=== PATIENT | female | born 1990 | race Caucasian/White ===

== ENCOUNTER 2019-11-05 14:56 | Emergency (ER) | payer OTHER ==
[2019-11-05 15:50] VITALS: BP 157/99; PULSE 85; RESP 17; TEMP 99.2
[2019-11-05] MEDS ORDERED: ACET/COD 300 MG/30 MG STARTER PACK 6 TAB BTL PO STA (16:08)
--- NOTE | 2019-11-05 16:15 | ED ---
ENT HPI - General Chief complaint: Dental/Oral Stated complaint: Abcess tooth Source: patient Mode of arrival: ambulatory - History of Present Illness Initial comments: Patient is a 29-year-old female presenting to emergency prompt with a chief complaint of dental pain. She states that she is noticed a pain on the lingual aspect of the left lower jaw. Patient reports she has an appointment scheduled to see a dentist in 3 days. Patient denies any night sweats or chills. Denies any swelling. Reports the pain is about a 6 and throbbing. She reports the pain is exacerbated whenever she places her tongue along the tender site. - Related Data Previous Rx's Medication Instructions Recorded Amoxicillin/Potassium Clav 1 tab PO Q12HR #10 tab 11/05/19 [Augmentin 875-125 Tablet] Allergies Allergy/AdvReac Type Severity Reaction Status Date / Time pomegranate Allergy Swelling Verified 11/05/19 15:51 Review of Systems ROS Statement: Those systems with pertinent positive or pertinent negative responses have been documented in the HPI. ROS Other: All systems not noted in ROS Statement are negative. Past Medical History Past Medical History: Asthma History of Any Multi-Drug Resistant Organisms: None Reported Past Surgical History: Section, Cholecystectomy Past Psychological History: No Psychological Hx Reported Smoking Status: Current every day smoker Past Alcohol Use History: Occasional Past Drug Use History: None Reported General Exam Limitations: no limitations General appearance: alert, in no apparent distress Head exam: Present: atraumatic, normocephalic, normal inspection Eye exam: Present: normal appearance, PERRL, EOMI Pupils: Present: normal accommodation ENT exam: Present: normal exam, mucous membranes moist, TM's normal bilaterally, normal external ear exam. Absent: normal oropharynx (Periapical abscess on the lingual side of the left lower jaw. Uvula midline. Able to visualize posterior pharynx. No tonsillar enlargement erythema or exudates. No changes in voice. ) Neck exam: Present: normal inspection, full ROM Respiratory exam: Present: normal lung sounds bilaterally Cardiovascular Exam: Present: regular rate, normal rhythm, normal heart sounds Extremities exam: Present: normal inspection, full ROM Back exam: Present: normal inspection, full ROM Neurological exam: Present: alert, oriented X3 Psychiatric exam: Present: normal affect, normal mood Skin exam: Present: warm, dry, intact, normal color Course Vital Signs 11/05/19 15:45 Temperature 99.2 F Pulse Rate 85 Respiratory 17 Rate Blood Pressure 157/99 O2 Sat by Pulse 99 Oximetry Procedures - Incision & Drainage Consent Obtained: verbal consent Indication: Periapical abscess Site: oral Size (cm): 5 (mm) Sterile Field Used?: No Needle Aspiration Performed?: Yes I&D Drainage Obtained: Pus, Blood Culture Obtained?: No Complications: pain, bleeding Patient Tolerated Procedure: well, no complications Medical Decision Making - Medical Decision Making Patient is a 29-year-old female presenting to the emergency room with a chief complaint of a dental pain. On exam patient does have a periapical abscess on the lingual aspect of the left lower jaw. There is fluctuance. She states there was some drainage from it earlier today. I was able to I&D the abscess using a 20-gauge needle. Pus and blood noted. Patient will be discharged with a Tylenol 3 starter pack and advised about the possible side effects of the medication. Patient also discharged with Augmentin for the next 5 days until she is able to see her dentist. Strict return parameters were thoroughly discussed the patient is understanding and agreeable. Case discussed with physician. Disposition Clinical Impression: Acute periapical abscess Disposition: HOME SELF-CARE Condition: Stable Instructions (If sedation given, give patient instructions): Toothache (ED) Additional Instructions: Please take prescribed medication as directed. Please follow up with a dentist. Please return to emergency department if symptoms worsen. Prescriptions: Amoxicillin/Potassium Clav [Augmentin 875-125 Tablet] 1 tab PO Q12HR #10 tab Is patient prescribed a controlled substance at d/c from ED?: No Referrals: Ramos Pate MD [Primary Care Provider] - 1-2 days Time of Disposition: 16:15
== END 2019-11-05 16:24 | disposition home or self-care (01) ==
LOC: EC 14:56
DX: K04.7 Periapical abscess without sinus (principal); F17.200 Nicotine dependence, unspecified, uncomplicated; Z91.018 Allergy to other foods
CPT/HCPCS: 41800; 99282